=== PATIENT | male | born 1950 | race Caucasian/White ===

== ENCOUNTER 2017-11-03 15:01 | Emergency (ER) | payer MEDICARE, BC ==
[2017-11-03 16:08] LABS: CHLORIDE,CL 105 mmol/L (98-107); SODIUM,NA 143 mmol/L (136-145)
[2017-11-03] MEDS ORDERED: Take Home: predniSONE 20 MG, 2 Tab Pack PO ONE (16:26)
--- NOTE | 2017-11-04 04:05 | EDM.PDOC ---
ED HPI GENERAL MEDICAL PROBLEM - General Chief Complaint: Skin Complaint Time Seen by Provider: 11/03/17 15:15 Source of Information: Reports: Patient History Limitations: Reports: No Limitations - History of Present Illness INITIAL COMMENTS - FREE TEXT/NARRATIVE: Pt. states that he underwent an STAN of his low back and since that time has developed some erythema and a rashed rash to the area. Pt. states that he has not been experiencing any increased pain. No fever or chills. No lower motor weakness. Pt. states that he is not experiencing any spinal pain or headache. Onset Date: 10/31/17 Duration: Constant Location: Reports: Back - Related Data Allergies Allergy/AdvReac Type Severity Reaction Status Date / Time pravastatin [From Pravachol] Allergy Other Verified 11/03/17 15:17 Home Meds: Home Meds Aspirin [Halfprin] 81 mg PO BRK 10/21/17 [History] Fish Oil/[place]-3 Fatty Acids [Fish Oil] 1,000 mg PO BID 10/21/17 [History] Ibuprofen 800 mg PO TID PRN 10/21/17 [History] L.acidoph,Paracasei, B.lactis [Probiotic] 1 each PO DAILY 10/21/17 [History] Lisinopril [Lisinopril] 20 mg PO DAILY 10/21/17 [History] Melatonin 3 mg PO BEDTIME 10/21/17 [History] Multivitamin [Daily Multiple Vitamin] 1 tab PO DAILY 10/21/17 [History] Rosuvastatin [Crestor] 10 mg PO DAILY 10/21/17 [History] metFORMIN [Glucophage] 850 mg PO BIDMEALS 10/21/17 [History] Atenolol [Atenolol] 12.5 mg PO DAILY 10/24/17 [History] Past Medical History Other HEENT History: PRESBYOPIA. CHALAZION (SWELLING/LUMP IN EYELID) Cardiovascular History: Reports: CAD, High Cholesterol, Hypertension Respiratory History: Reports: None Gastrointestinal History: Reports: Colon Polyp, Hemorrhoids Genitourinary History: Reports: None Musculoskeletal History: Reports: Back Pain, Chronic Other Musculoskeletal History: SHOULDER PAIN Neurological History: Reports: None Other Neuro History: OTHER EXTRAPYRAMIDAL DISEASE WITH ABNORMAL MOVEMENT DISORDER Other Psychiatric History: INSOMNIA Endocrine/Metabolic History: Reports: Diabetes, Type II Other Hematologic History: ELEVATED LIVER FUNCTION TESTS. OTHER ABNORMAL FINDINGS OF BLOOD CHEMISTRY. MONOCLONAL GAMMOPATHY Immunologic History: Reports: None Oncologic (Cancer) History: Reports: None Dermatologic History: Reports: Eczema Other Dermatologic History: CONTACT DERMATITIS - Past Surgical History Head Surgeries/Procedures: Reports: None Cardiovascular Surgical History: Reports: Percutaneous Transluminal Angioplasty Respiratory Surgical History: Reports: None GI Surgical History: Reports: Colonoscopy Other GI Surgeries/Procedures: LIVER BIOPSY Endocrine Surgical History: Reports: None Other Musculoskeletal Surgeries/Procedures:: ARTHROPLASTY GLENOHUMERAL JOINT TOTAL SHOULDER Oncologic Surgical History: Reports: None Social & Family History - Tobacco Use Smoking Status *Q: Never Smoker - Alcohol Use Days Per Week of Alcohol Use: 1 - Recreational Drug Use Recreational Drug Use: No Drug Use in Last 12 Months: No ED ROS GENERAL - Review of Systems Review Of Systems: See Below Constitutional: Reports: No Symptoms HEENT: Reports: No Symptoms Respiratory: Reports: No Symptoms Cardiovascular: Reports: No Symptoms Endocrine: Reports: No Symptoms GI/Abdominal: Reports: No Symptoms : Reports: No Symptoms Musculoskeletal: Reports: No Symptoms Skin: Reports: Pruritis, Rash, Erythema (low back) Neurological: Reports: No Symptoms Psychiatric: Reports: No Symptoms Hematologic/Lymphatic: Reports: No Symptoms Immunologic: Reports: No Symptoms ED EXAM, SKIN/RASH Exam: See Below Exam Limited By: No Limitations General Appearance: Alert Throat/Mouth: Normal Inspection Head: Atraumatic, Normocephalic Neck: Normal Inspection Respiratory/Chest: No Respiratory Distress Cardiovascular: Normal Peripheral Pulses, Regular Rate, Rhythm, No Edema, No JVD Skin: Erythema, Rash (patchy erythma noted to low back area, located mainly on L side. No discharge or abscess formation. Extends into several dermatomes. ) Lymphatic: No Adenopathy Course - Vital Signs Last Recorded V/S: Last Vital Signs Temp 36.1 C 11/03/17 15:05 Pulse 69 11/03/17 15:05 Resp 16 11/03/17 15:05 BP 159/62 H 11/03/17 15:05 Pulse Ox - Orders/Labs/Meds Labs: Laboratory Tests 11/03/17 11/03/17 Range/Units 15:46 15:46 WBC 5.6 (4.0-10.0) x10^3/uL RBC 5.07 (4.5-6.0) x10^6/uL Hgb 15.1 (14.0-18.0) g/dL Hct 43.0 (40.0-52.0) % MCV 84.8 (78.0-93.0) fL MCH 29.8 (26.0-32.0) pg MCHC 35.1 (32.0-36.0) g/dL RDW Coeff of [place] 12.8 (10.0-15.0) % Plt Count 172 (130-400) x10^3/uL Neut % (Auto) 46.6 L (50.0-80.0) % Lymph % (Auto) 35.1 (25.0-50.0) % [place] % (Auto) 10.4 (2.0-11.0) % Eos % (Auto) 7.7 H (0.0-4.0) % Baso % (Auto) 0.2 (0.2-1.2) % Sodium 143 (136-145) mmol/L Potassium 3.7 (3.5-5.1) mmol/L Chloride 105 (98-107) mmol/L Carbon Dioxide 28 (21-32) mmol/L BUN 18 (7-18) mg/dL Creatinine 0.8 (0.70-1.30) mg/dL Est Cr Clr Drug Dosing 92.06 mL/min Estimated GFR (MDRD) > 60 Glucose 129 H (74-106) mg/dL Calcium 8.5 (8.5-10.1) mg/dL C-Reactive Protein < 0.2 (<=0.9) mg/dL Meds: Medications Discontinued Medications Generic Name Dose Route Start Last Admin Trade Name [place] PRN Reason Stop Dose Admin Prednisone 2 packet 11/03/17 16:26 11/03/17 16:40 Take Home: Prednisone 20 Mg, 2 Tab Pack PO 11/03/17 16:27 2 packet ONETIME ONE Administration Departure - Departure Time of Disposition: 16:40 Disposition: Home, Self-Care 01 Clinical Impression: Allergic reaction caused by a drug - Discharge Information Instructions: Drug Allergy Referrals: Mary Phelps MD [Primary Care Provider] - Forms: ED Department Discharge Additional Instructions: Prednisone 40mg once daily for 6 days total. Return to ER if increased redness, swelling, fever, chills, or discomfort. Recheck in clinic in 5-7 days.
== END 2017-11-03 16:40 | disposition home or self-care (01) ==
LOC: VM.ED 15:01
DX: R21 Rash and other nonspecific skin eruption (principal); T38.0X5A Adverse effect of glucocorticoids and synthetic analogues, initial encounter; I10 Essential (primary) hypertension; I25.10 Atherosclerotic heart disease of native coronary artery without angina pectoris; E78.00 Pure hypercholesterolemia, unspecified; E11.9 Type 2 diabetes mellitus without complications; Z79.84 Long term (current) use of oral hypoglycemic drugs; Z79.82 Long term (current) use of aspirin; Z79.899 Other long term (current) drug therapy; Z88.8 Allergy status to other drugs, medicaments and biological substances
CPT/HCPCS: 36415; 80048; 85025; 86140; 99283; A9270

== ENCOUNTER 2021-04-22 18:04 | Emergency (ER) | payer MEDICARE, BC ==
--- NOTE | 2021-04-22 18:21 | EDM.PDOC ---
ED HPI GENERAL MEDICAL PROBLEM - General Stated Complaint: left fourth finger injury Time Seen by Provider: 04/22/21 18:40 Source of Information: Reports: Patient History Limitations: Reports: No Limitations - History of Present Illness INITIAL COMMENTS - FREE TEXT/NARRATIVE: Patient hit his left ring finger against a tractor and a piece of metal two days ago. He didn't think much about it but it has continued to get worse, swelling under the nailbed and now inability to extend at the DIP of this finger due to the swelling. ATtempted to use a hot implement to drain the subungal hematoma, but not successful. No other injury. sensation intact Left Finger-Ring Pain Score (Numeric/FACES): 8 - Related Data Allergies Allergy/AdvReac Type Severity Reaction Status Date / Time pravastatin [From Pravachol] Allergy Other Verified 04/22/21 18:28 Home Meds: Home Meds Aspirin [Halfprin] 81 mg PO BRK 10/21/17 [History] Fish Oil/[place]-3 Fatty Acids [Fish Oil] 1,000 mg PO BID 10/21/17 [History] Ibuprofen 800 mg PO TID PRN 10/21/17 [History] L.acidoph,Paracasei, B.lactis [Probiotic] 1 each PO DAILY 10/21/17 [History] Lisinopril 20 mg PO DAILY 10/21/17 [History] Multivitamin [Daily Multiple Vitamin] 1 tab PO DAILY 10/21/17 [History] Rosuvastatin [Crestor] 10 mg PO DAILY 10/21/17 [History] metFORMIN [Glucophage] 850 mg PO BIDMEALS 10/21/17 [History] atenoloL [Atenolol] 12.5 mg PO DAILY 10/24/17 [History] cephALEXin [Keflex] 500 mg PO Q8H 3 Days #12 cap 04/22/21 [Rx] Past Medical History Other HEENT History: PRESBYOPIA. CHALAZION (SWELLING/LUMP IN EYELID) Cardiovascular History: Reports: CAD, High Cholesterol, Hypertension Respiratory History: Reports: None Gastrointestinal History: Reports: Colon Polyp, Hemorrhoids Genitourinary History: Reports: None Musculoskeletal History: Reports: Back Pain, Chronic Other Musculoskeletal History: SHOULDER PAIN Neurological History: Reports: None Other Neuro History: OTHER EXTRAPYRAMIDAL DISEASE WITH ABNORMAL MOVEMENT DISORDER Other Psychiatric History: INSOMNIA Endocrine/Metabolic History: Reports: Diabetes, Type II Other Hematologic History: ELEVATED LIVER FUNCTION TESTS. OTHER ABNORMAL FINDINGS OF BLOOD CHEMISTRY. MONOCLONAL GAMMOPATHY Immunologic History: Reports: None Oncologic (Cancer) History: Reports: None Dermatologic History: Reports: Eczema Other Dermatologic History: CONTACT DERMATITIS - Past Surgical History Head Surgeries/Procedures: Reports: None Cardiovascular Surgical History: Reports: Percutaneous Transluminal Angioplasty Respiratory Surgical History: Reports: None GI Surgical History: Reports: Colonoscopy Other GI Surgeries/Procedures: LIVER BIOPSY Endocrine Surgical History: Reports: None Other Musculoskeletal Surgeries/Procedures:: ARTHROPLASTY GLENOHUMERAL JOINT TOTAL SHOULDER Oncologic Surgical History: Reports: None Review of Systems - Review of Systems Review Of Systems: See Below Constitutional: Reports: No Symptoms Eyes: Reports: No Symptoms Ears: Reports: No Symptoms Nose: Reports: No Symptoms Mouth/Throat: Reports: No Symptoms Respiratory: Reports: No Symptoms Cardiovascular: Reports: No Symptoms GI/Abdominal: Reports: No Symptoms Musculoskeletal: Reports: Other (left ring finger distal injury with bleeding under the nail bed) ED EXAM, GENERAL - Physical Exam Exam: See Below Exam Limited By: No Limitations General Appearance: No Apparent Distress Eye Exam: Bilateral Eye: EOMI, PERRL Ears: Normal External Exam Nose: Normal Inspection Head: Atraumatic Neck: Full Range of Motion Respiratory/Chest: No Respiratory Distress, Lungs Clear, Normal Breath Sounds Cardiovascular: Regular Rate, Rhythm, No Edema Extremities: Other (left 4th finger with limitation of extension of the DIP. subungal hematoma noted. good capillary refill. normal sensation. No other injruy) ED TRAUMA EXTREMITY PROCEDURES - Additional/Other Procedure(s) Other (Free Text) Procedure(s): using cautery, puncture hole done in the nail of the 4th finger left hand. blood relieved. offered digital block previous, declined. dressing applied Course - Vital Signs Last Recorded V/S: Last Vital Signs Temp 36.6 C 04/22/21 18:10 Pulse 58 L 04/22/21 18:10 Resp 16 04/22/21 18:10 BP 168/94 H 04/22/21 18:10 Pulse Ox 96 04/22/21 18:10 - Orders/Labs/Meds Orders: Active Orders 24 hr Category Date Time Status Fingers Fourth Digit Lt F3 [CR] Stat Exams 04/22/21 18:11 Taken cephALEXin [Take Home: Cephalexin 500 MG, 4 Cap Pack] Med 04/22/21 18:43 Once 2 packet PO ONETIME ONE - Radiology Interpretation Free Text/Narrative:: x-ray of finger favors degenerative changes over tiny avulsion fracture. 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 Will return for signs of infection and use the splint as needed for pain and protection Departure - Departure Time of Disposition: 18:44 Disposition: Home, Self-Care 01 Condition: Good Clinical Impression: Subungual hematoma of finger of left hand - Discharge Information *PRESCRIPTION DRUG MONITORING PROGRAM REVIEWED*: Not Applicable *COPY OF PRESCRIPTION DRUG MONITORING REPORT IN PATIENT RADHA: Not Applicable Prescriptions: cephALEXin [Keflex] 500 mg PO Q8H 3 Days #12 cap Instructions: Subungual Hematoma Referrals: Mary Phelps MD [Primary Care Provider] - Additional Instructions: bleeding was drained with a hole in the nail. You may continue to experience drainage. Watch for signs of infection and return to medical provider for change in drainage. Keep clean and use the splint to protect the finger for at least the next 2-3 weeks. Follow up with your physician as needed. You are given a starter pack of keflex 500 mg, to be taken one every 8 hours. 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 Sepsis Event Note (ED) - Focused Exam Vital Signs: Vital Signs Temp Pulse Resp BP Pulse Ox 04/22/21 18:10 36.6 C 58 L 16 168/94 H 96 - My Orders Last 24 Hours: My Active Orders 04/22/21 18:11 Fingers Fourth Digit Lt F3 [CR] Stat 04/22/21 18:43 cephALEXin [Take Home: Cephalexin 500 MG, 4 Cap Pack] 2 packet PO ONETIME ONE - Assessment/Plan Last 24 Hours: My Active Orders 04/22/21 18:11 Fingers Fourth Digit Lt F3 [CR] Stat 04/22/21 18:43 cephALEXin [Take Home: Cephalexin 500 MG, 4 Cap Pack] 2 packet PO ONETIME ONE
[2021-04-22] MEDS ORDERED: Take Home: Cephalexin 500 MG Cap, 4 Cap Pack PO ONE (18:43)
--- NOTE | 2021-04-22 19:01 | CR ---
[id number] RAD/RAD Fingers Left EXAM: RAD Fingers Left INDICATION: CRUSH INJURY TO DISTAL FINGER 4TH LEFT. COMPARISON: None. 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 No definite acute fracture. IMPRESSION: 1. No acute findings. James Tavera MD 04/22/21 [id number] Thank you for allowing us to participate in the care of your patient.
== END 2021-04-22 19:10 | disposition home or self-care (01) ==
LOC: VM.ED 18:04
DX: S60.142A Contusion of left ring finger with damage to nail, initial encounter (principal); I25.10 Atherosclerotic heart disease of native coronary artery without angina pectoris; E78.00 Pure hypercholesterolemia, unspecified; I10 Essential (primary) hypertension; E11.9 Type 2 diabetes mellitus without complications; Z79.4 Long term (current) use of insulin; Z79.899 Other long term (current) drug therapy; Z79.82 Long term (current) use of aspirin; W22.8XXA Striking against or struck by other objects, initial encounter
CPT/HCPCS: 11740; 73140-F3; 99283; 99283-25; A9270-GY

== ENCOUNTER 2022-01-22 09:58 | Emergency (ER) | payer MEDICARE, BC ==
[2022-01-22] MEDS: Morphine 4 MG/ML Syringe IVPUSH ONE ×2 (10:37→11:39)
[2022-01-22] MEDS: Sodium Chloride 0.9% 10 ML Syringe FLUSH PRN (10:38)
[2022-01-22] MEDS: Ondansetron 4 MG/2 ML SDV IVPUSH ONE (10:38)
[2022-01-22 10:53] LABS: ANION GAP 13.2 mmol/L (5-15); CHLORIDE,CL 101 mmol/L (98-107); SODIUM,NA 138 mmol/L (136-145)
[2022-01-22] MEDS: Iopamidol 755 Mg/ML 100 ML Bottle IVPUSH ONE (11:19)
[2022-01-22] MEDS: HYDROmorphone 1 MG/ML Syringe IVPUSH ONE (12:55)
[2022-01-22] MEDS: Ketorolac 15 MG/ML SDV IVPUSH ONE (13:00)
== END 2022-01-22 13:34 | disposition home or self-care (01) ==
LOC: VM.ED 09:58
DX: K29.80 Duodenitis without bleeding (principal); I25.10 Atherosclerotic heart disease of native coronary artery without angina pectoris; I10 Essential (primary) hypertension; E78.00 Pure hypercholesterolemia, unspecified; E11.9 Type 2 diabetes mellitus without complications; Z79.899 Other long term (current) drug therapy; Z79.84 Long term (current) use of oral hypoglycemic drugs; Z88.8 Allergy status to other drugs, medicaments and biological substances
CPT/HCPCS: 74174; 80053; 81003; 82150; 83690; 83735; 84100; 84484; 85025; 85610; 85730; 86140; 93005; 96374; 96375; 96376; 99284; 99284-25; J1170; J1885; J2270; J2405; J3490; Q9967

== ENCOUNTER 2022-09-29 08:21 | Emergency (ER) | payer MEDICARE, BC | END 2022-09-29 09:17 | disposition home or self-care (01) | LOC: VM.ED 08:21 | DX: S83.207A Unspecified tear of unspecified meniscus, current injury, left knee, initial encounter (principal); I25.10 Atherosclerotic heart disease of native coronary artery without angina pectoris; E78.00 Pure hypercholesterolemia, unspecified; I10 Essential (primary) hypertension; E11.9 Type 2 diabetes mellitus without complications; Z88.8 Allergy status to other drugs, medicaments and biological substances; Z79.82 Long term (current) use of aspirin; Z79.84 Long term (current) use of oral hypoglycemic drugs; Z79.899 Other long term (current) drug therapy; X50.1XXA Overexertion from prolonged static or awkward postures, initial encounter | CPT/HCPCS: 99283 ==

== ENCOUNTER 2023-04-18 07:28 | Day surgery (SDC) | payer MEDICARE, BC ==
[~2023-04-18 07:28] MED LIST: Lactated Ringers 1,000 ML IV SCH
[2023-04-18] MEDS ORDERED: Propofol 200 MG/20 ML SDV ONE (08:14)
[2023-04-18] MEDS ORDERED: fentaNYL 100 MCG/2 ML SDV ONE (08:14)
== END 2023-04-18 10:50 | disposition home or self-care (01) ==
LOC: VM.SDS 07:28
PROVIDERS: ATTEND Family Medicine
DX: K21.00 Gastro-esophageal reflux disease with esophagitis, without bleeding (principal); K29.60 Other gastritis without bleeding; K29.70 Gastritis, unspecified, without bleeding; I10 Essential (primary) hypertension; E78.00 Pure hypercholesterolemia, unspecified; E11.9 Type 2 diabetes mellitus without complications; G47.00 Insomnia, unspecified; I25.10 Atherosclerotic heart disease of native coronary artery without angina pectoris; I25.2 Old myocardial infarction; Z98.890 Other specified postprocedural states; Z79.899 Other long term (current) drug therapy; Z79.82 Long term (current) use of aspirin; Z88.8 Allergy status to other drugs, medicaments and biological substances
CPT/HCPCS: 00731; 82947; 88305; J2704; J3010; J7120

== ENCOUNTER 2023-09-20 11:53 | Emergency (ER) | payer MEDICARE, BC ==
[2023-09-20 12:32] LABS: BASOPHILS PERCENT AUTO 0.3 % (0.2-1.2); EOSINOPHILS ABSOLUTE AUTO 0.4 x10^3/uL (0.0-0.5); EOSINOPHILS PERCENT AUTO 5.5 % (0.0-4.0); HEMATOCRIT 48.9 % (40.0-52.0); HEMOGLOBIN 16.7 g/dL (14.0-18.0); IMMATURE GRAN ABSOLUTE AUTO 0.01 x10^3/uL (0.00-0.07); LYMPHOCYTES ABSOLUTE AUTO 2.1 x10^3/uL (1.0-4.8); LYMPHOCYTES PERCENT AUTO 30.6 % (25.0-50.0); MEAN CORPUSCULAR HEMOGLOBIN 29.8 pg (26.0-32.0); MEAN CORPUSCULAR HGB CONC 34.2 g/dL (32.0-36.0); MEAN CORPUSCULAR VOLUME 87.2 fL (78.0-93.0); MONOCYTES ABSOLUTE AUTO 0.7 x10^3/uL (0.0-0.8); MONOCYTES PERCENT AUTO 10.9 % (2.0-11.0); NEUTROPHILS ABSOLUTE AUTO 3.5 x10^3/uL (1.8-7.7); NEUTROPHILS PERCENT AUTO 52.6 % (50.0-80.0); PLATELET COUNT,PLT 199 x10^3/uL (130-400); RED BLOOD CELL COUNT 5.61 x10^6/uL (4.5-6.0); WHITE BLOOD CELL COUNT,WBC 6.7 x10^3/uL (4.0-10.0)
[2023-09-20 12:52] LABS: A/G RATIO 1.31; ALANINE AMINOTRANSFERASE,ALT 42 U/L (16-63); ALBUMIN 4.2 g/dL (3.4-5.0); ALKALINE PHOSPHATASE 108 U/L (46-116); ASPARTATE AMNIOTRANSFERASE,AST 21 U/L (15-37); BILIRUBIN TOTAL 0.6 mg/dL (0.2-1.0); BLOOD UREA NITROGEN,BUN 12 mg/dL (7-18); CARBON DIOXIDE,CO2 30 mmol/L (21-32); CHLORIDE,CL 102 mmol/L (98-107); CREATINE KINASE,CK 66 U/L (39-308); CREATININE 0.7 mg/dL (0.70-1.30); GLUCOSE RANDOM 112 mg/dL (70-99); POTASSIUM,K 4.7 mmol/L (3.5-5.1); PROTEIN TOTAL,TP 7.4 g/dL (6.4-8.2); SODIUM,NA 142 mmol/L (136-145)
[2023-09-20 12:53] LABS: ANION GAP 14.7 mmol/L (5-15); C-REACTIVE PROTEIN < 0.50 mg/dL (<=0.50); ESTIMATED GFR 99 mL/min (>=60)
[2023-09-20 13:01] LABS: CALCIUM 9.2 mg/dL (8.5-10.1)
== END 2023-09-20 12:35 | disposition home or self-care (01) ==
LOC: VM.ED 11:53
DX: I25.119 Atherosclerotic heart disease of native coronary artery with unspecified angina pectoris (principal); I10 Essential (primary) hypertension; E78.00 Pure hypercholesterolemia, unspecified; E11.9 Type 2 diabetes mellitus without complications; Z79.84 Long term (current) use of oral hypoglycemic drugs; Z79.82 Long term (current) use of aspirin; Z79.899 Other long term (current) drug therapy; Z88.8 Allergy status to other drugs, medicaments and biological substances
CPT/HCPCS: 36415; 71046; 80053; 82550; 84484; 85025; 86140; 93005; 93010; 99284; 99285

== ENCOUNTER 2023-09-21 13:34 | Emergency (ER) | payer MEDICARE, BC ==
[2023-09-21] MEDS ORDERED: Sodium Chloride 0.9% 10 ML Syringe FLUSH PRN (13:45)
[2023-09-21] MEDS ORDERED: Aspirin 81 MG Tab.Chew PO ONE (13:47)
[2023-09-21 13:53] LABS: BASOPHILS PERCENT AUTO 0.4 % (0.2-1.2); EOSINOPHILS ABSOLUTE AUTO 0.4 x10^3/uL (0.0-0.5); EOSINOPHILS PERCENT AUTO 6.4 % (0.0-4.0); HEMATOCRIT 44.9 % (40.0-52.0); HEMOGLOBIN 15.1 g/dL (14.0-18.0); IMMATURE GRAN ABSOLUTE AUTO 0.01 x10^3/uL (0.00-0.07); LYMPHOCYTES PERCENT AUTO 28.9 % (25.0-50.0); MEAN CORPUSCULAR HEMOGLOBIN 29.4 pg (26.0-32.0); MEAN CORPUSCULAR HGB CONC 33.6 g/dL (32.0-36.0); MEAN CORPUSCULAR VOLUME 87.5 fL (78.0-93.0); MONOCYTES ABSOLUTE AUTO 0.7 x10^3/uL (0.0-0.8); MONOCYTES PERCENT AUTO 9.6 % (2.0-11.0); NEUTROPHILS ABSOLUTE AUTO 3.7 x10^3/uL (1.8-7.7); NEUTROPHILS PERCENT AUTO 54.6 % (50.0-80.0); PLATELET COUNT,PLT 202 x10^3/uL (130-400); RED BLOOD CELL COUNT 5.13 x10^6/uL (4.5-6.0); WHITE BLOOD CELL COUNT,WBC 6.7 x10^3/uL (4.0-10.0)
[2023-09-21 14:08] LABS: PROTHROMBIN TIME 10.8 SEC (9.5-12.2); PTT,PARTIAL THROMBOPLSTIN TIME 25.6 SEC (23.6-33.6)
[2023-09-21 14:12] LABS: A/G RATIO 1.32; ALANINE AMINOTRANSFERASE,ALT 37 U/L (16-63); ALBUMIN 3.7 g/dL (3.4-5.0); ALKALINE PHOSPHATASE 97 U/L (46-116); ASPARTATE AMNIOTRANSFERASE,AST 18 U/L (15-37); BILIRUBIN TOTAL 0.5 mg/dL (0.2-1.0); BLOOD UREA NITROGEN,BUN 17 mg/dL (7-18); CARBON DIOXIDE,CO2 30 mmol/L (21-32); CHLORIDE,CL 101 mmol/L (98-107); CREATININE 0.8 mg/dL (0.70-1.30); GLUCOSE RANDOM 127 mg/dL (70-99); MAGNESIUM 1.9 mg/dL (1.8-2.4); PROTEIN TOTAL,TP 6.5 g/dL (6.4-8.2); SODIUM,NA 141 mmol/L (136-145)
[2023-09-21 14:13] LABS: C-REACTIVE PROTEIN < 0.50 mg/dL (<=0.50); ESTIMATED GFR 95 mL/min (>=60)
[2023-09-21] MEDS ORDERED: Heparin Sodium 5,000 Units/ML Vial IVPUSH ONE (14:37)
[2023-09-21] MEDS ORDERED: Heparin Sodium/0.45% NaCl 25,000 UNITS/500 ML BAG IV ONE (14:38)
== END 2023-09-21 15:48 | disposition short-term general hospital (02) ==
LOC: VM.ED 13:34
DX: R07.2 Precordial pain (principal); I10 Essential (primary) hypertension; E78.00 Pure hypercholesterolemia, unspecified; I25.10 Atherosclerotic heart disease of native coronary artery without angina pectoris; E11.9 Type 2 diabetes mellitus without complications; Z88.8 Allergy status to other drugs, medicaments and biological substances; Z79.84 Long term (current) use of oral hypoglycemic drugs; Z79.82 Long term (current) use of aspirin; Z79.899 Other long term (current) drug therapy
CPT/HCPCS: 36415; 71045; 80053; 83735; 84484; 85025; 85610; 85730; 86140; 93005; 93010; 96365; 99284; 99285-25; A9270-GY; J1644

== ENCOUNTER 2024-04-30 16:08 | Emergency (ER) | payer MEDICARE, BC ==
[2024-04-30 16:31] LABS: BASOPHILS PERCENT AUTO 0.2 % (0.2-1.2); EOSINOPHILS ABSOLUTE AUTO 0.3 x10^3/uL (0.0-0.5); EOSINOPHILS PERCENT AUTO 6.4 % (0.0-4.0); HEMATOCRIT 45.3 % (40.0-52.0); HEMOGLOBIN 15.4 g/dL (14.0-18.0); IMMATURE GRAN ABSOLUTE AUTO 0.01 x10^3/uL (0.00-0.07); LYMPHOCYTES ABSOLUTE AUTO 1.5 x10^3/uL (1.0-4.8); LYMPHOCYTES PERCENT AUTO 31.1 % (25.0-50.0); MEAN CORPUSCULAR HEMOGLOBIN 29.6 pg (26.0-32.0); MEAN CORPUSCULAR VOLUME 87.1 fL (78.0-93.0); MONOCYTES ABSOLUTE AUTO 0.6 x10^3/uL (0.0-0.8); MONOCYTES PERCENT AUTO 12.4 % (2.0-11.0); NEUTROPHILS ABSOLUTE AUTO 2.4 x10^3/uL (1.8-7.7); NEUTROPHILS PERCENT AUTO 49.7 % (50.0-80.0); PLATELET COUNT,PLT 166 x10^3/uL (130-400); WHITE BLOOD CELL COUNT,WBC 4.8 x10^3/uL (4.0-10.0)
[2024-04-30 16:48] LABS: BLOOD UREA NITROGEN,BUN 14 mg/dL (7-18); CALCIUM 9.5 mg/dL (8.5-10.1); CARBON DIOXIDE,CO2 31 mmol/L (21-32); CHLORIDE,CL 105 mmol/L (98-107); CREATININE 0.8 mg/dL (0.70-1.30); GLUCOSE RANDOM 96 mg/dL (70-99); POTASSIUM,K 4.8 mmol/L (3.5-5.1); SODIUM,NA 143 mmol/L (136-145)
[2024-04-30 16:49] LABS: ANION GAP 11.8 mmol/L (5-15); ESTIMATED GFR 95 mL/min (>=60)
[2024-04-30] MEDS: Aspirin 81 MG Tab.Chew PO ONE (17:17)
[2024-04-30] MEDS: Nitroglycerin 0.4 MG Tab.SL SL PRN (17:55)
[2024-04-30] MEDS: Heparin Sodium 5,000 Units/ML Vial IVPUSH ONE (18:39)
[2024-04-30] MEDS: Heparin Sodium/0.45% NaCl 25,000 UNITS/500 ML BAG IV STA (18:40)
[2024-04-30] MEDS ORDERED: Acetaminophen 500 MG Tab PO ONE (18:44)
[2024-04-30 18:52] LABS: PROTHROMBIN TIME 10.1 SEC (8.9-11.5); PTT,PARTIAL THROMBOPLSTIN TIME 26.4 SEC (21.9-33.8)
== END 2024-04-30 20:00 | disposition short-term general hospital (02) ==
LOC: VM.ED 16:08
DX: I24.9 Acute ischemic heart disease, unspecified (principal); I10 Essential (primary) hypertension; I25.10 Atherosclerotic heart disease of native coronary artery without angina pectoris; E11.9 Type 2 diabetes mellitus without complications; E78.00 Pure hypercholesterolemia, unspecified; Z79.899 Other long term (current) drug therapy; Z88.8 Allergy status to other drugs, medicaments and biological substances; Z79.84 Long term (current) use of oral hypoglycemic drugs; Z79.82 Long term (current) use of aspirin
CPT/HCPCS: 36415; 71045; 80048; 84484; 85025; 85610; 85730; 93005; 96365; 99285; A9270; J1644